=== PATIENT | female | born 1990 | race Caucasian/White ===

== ENCOUNTER 2018-03-23 11:57 | Outpatient (CLI) | payer OTHER ==
[2018-03-23] MEDS: TERBUTALINE 1 MG/ML INJ SC ×2 (13:36→16:19)
[2018-03-23 14:28] LABS: ADD UMIC NO; UR ASCORBIC ACID NEGATIVE (NEGATIVE); UR BILIRUBIN (Dip) NEGATIVE (NEGATIVE); UR BLOOD (Dip) NEGATIVE (NEGATIVE); UR CLARITY CLEAR (CLEAR); UR COLOR YELLOW (YELLOW); UR GLUCOSE (Dip) NEGATIVE (NEGATIVE); UR KETONES (Dip) NEGATIVE (NEGATIVE); UR LEUKOCYTE ESTERASE (Dip) NEGATIVE Leu/ul (NEGATIVE); UR NITRITE (Dip) NEGATIVE (NEGATIVE); UR TOTAL PROTEIN (Dip) NEGATIVE (NEGATIVE); UR UROBILINOGEN (Dip) NEGATIVE (NEGATIVE)
== END 2018-03-23 17:45 | disposition home or self-care (01) ==
LOC: OBT 11:57 → L-D 11:58 → OBT 17:45
DX: O62.9 Abnormality of forces of labor, unspecified (principal); Z3A.36 36 weeks gestation of pregnancy
CPT/HCPCS: 76818; 81003

== ENCOUNTER 2018-03-27 22:18 | Inpatient (IN) | payer OTHER ==
[2018-03-27] MEDS: LACTATED RINGER'S 1,000 ML IV (23:12)
[2018-03-27] MEDS: ACETAMINOPHEN 1000MG/100ML IV 100 ML IVPB (23:17)
[2018-03-28 00:04] LABS: ADD UMIC NO; UR ASCORBIC ACID NEGATIVE (NEGATIVE); UR BILIRUBIN (Dip) NEGATIVE (NEGATIVE); UR BLOOD (Dip) NEGATIVE (NEGATIVE); UR CLARITY CLEAR (CLEAR); UR COLOR STRAW (YELLOW); UR GLUCOSE (Dip) NEGATIVE (NEGATIVE); UR KETONES (Dip) NEGATIVE (NEGATIVE); UR LEUKOCYTE ESTERASE (Dip) NEGATIVE Leu/ul (NEGATIVE); UR NITRITE (Dip) NEGATIVE (NEGATIVE); UR SPECIFIC GRAVITY (Dip) 1.009 (1.003-1.030); UR TOTAL PROTEIN (Dip) NEGATIVE (NEGATIVE); UR UROBILINOGEN (Dip) NEGATIVE (NEGATIVE)
[2018-03-28] MEDS: TERBUTALINE 1 MG/ML INJ SC ×2 (00:13→01:01)
[2018-03-28] MEDS: LACTATED RINGER'S 1,000 ML IV ×3 (00:15→19:20)
[2018-03-28] MEDS: BUTORPHANOL 2 MG INJ IV (14:30)
[2018-03-28 16:04] LABS: ADD MAN DIFF? NO
[2018-03-28 16:06] LABS: BASOPHILS % 0.4 % (0.0-2.0); EOSINOPHILS # 0.1 10^3/ul (0.0-0.5); EOSINOPHILS % 0.9 % (0.0-7.0); HEMATOCRIT 33.1 % (37.0-47.0); HEMOGLOBIN 11.2 g/dl (12.0-16.0); LYMPHOCYTES # 1.5 10^3/ul (0.8-2.9); LYMPHOCYTES % 19.2 % (15.0-51.0); MEAN CORPUSCULAR HEMOGLOBIN 30.7 pg (29.0-33.0); MEAN CORPUSCULAR HGB CONC 33.8 g/dl (32.0-37.0); MEAN CORPUSCULAR VOLUME 90.7 fl (82.0-101.0); MEAN PLATELET VOLUME 10.4 fl (7.4-10.4); MONOCYTE # 0.6 10^3/ul (0.3-0.9); MONOCYTES % 7.4 % (0.0-11.0); NEUTROPHIL # 5.3 10^3/ul (1.6-7.5); NEUTROPHILS % 70.6 % (39.0-77.0); PLATELET COUNT 249 10^3/UL (140-415); RED BLOOD COUNT 3.65 10^6/ul (4.20-5.40); RED CELL DISTRIBUTION WIDTH 14.5 % (11.5-14.5)
[2018-03-28 16:06] LABS: WHITE BLOOD COUNT 7.6 10^3/ul (4.8-10.8)
[2018-03-28 16:26] LABS: INR 0.95; PROTIME 12.8 Sec (11.9-14.9)
[2018-03-28 16:27] LABS: PARTIAL THROMBOPLASTIN TIME 27.2 Sec (23.0-35.0)
[2018-03-28 17:09] LABS: HEPATITIS B SURFACE ANTIGEN NEGATIVE (NEGATIVE)
[2018-03-28] MEDS ORDERED: MISOPROSTOL 200 MCG TAB PR (18:00)
[2018-03-28] MEDS ORDERED: CARBOPROST 250 MCG INJ IM (18:00)
[2018-03-28] MEDS ORDERED: OXYTOCIN 30 UNITS/LR 500 ML IV ×2 (18:00)
[2018-03-28] MEDS ORDERED: METHYLERGONOVINE 0.2 MG INJ IM (18:00)
[2018-03-28 19:04] LABS: RAPID PLASMA REAGIN NONREACTIVE (NR)
[2018-03-28] MEDS ORDERED: FENTAnyl 2MCG/ML-ROPIV 0.2% 100 ML (20:35)
[2018-03-28] MEDS ORDERED: FENTAnyl 50 MCG/ML VIAL (22:26)
[2018-03-28] MEDS ORDERED: LIDOCAINE 1.5%/EPI MPF (SDV) 30 ML VIAL (22:26)
[2018-03-28] MEDS ORDERED: SODIUM BICARBONATE (IV ADD) 50 ML (22:26)
[2018-03-28] MEDS: CEFAZOLIN 2 GM/50 ML (PMX) 50 ML IVPB (22:33)
[2018-03-28] MEDS ORDERED: DEXAMETHASONE 4 MG/ML 1 ML INJ (22:34)
[2018-03-28] MEDS ORDERED: ONDANSETRON 4 MG INJ (22:34)
[2018-03-28] MEDS ORDERED: morphine SULFATE/PF (10 MG/10 ML) INJ (22:55)
[2018-03-28] MEDS ORDERED: DIPHENHYDRAMINE 50 MG INJ IV (23:00)
[2018-03-28] MEDS ORDERED: ONDANSETRON 4 MG INJ IV (23:00)
[2018-03-28] MEDS ORDERED: ZOLPIDEM 5 MG TAB PO (23:00)
[2018-03-28] MEDS ORDERED: HYDROmorphONE 0.5 MG/0.5 ML SYG IV ×2 (23:00)
[2018-03-28] MEDS ORDERED: NALOXONE (0.4 MG/ML) INJ IV (23:00)
[2018-03-28] MEDS: OXYTOCIN 30 UNITS/LR 500 ML IV (23:59)
[2018-03-29] MEDS ORDERED: OXYCODONE/ACETAMINOPHEN (5/325) TAB PO
[2018-03-29] MEDS ORDERED: OXYTOCIN 30 UNITS/LR 500 ML IV
[2018-03-29] MEDS ORDERED: MISOPROSTOL 200 MCG TAB PR
[2018-03-29] MEDS ORDERED: NACL 0.9% 3 ML SYG IV
[2018-03-29] MEDS ORDERED: LANOLIN HPA 1 PKT TOP
[2018-03-29] MEDS ORDERED: METHYLERGONOVINE 0.2 MG INJ IM
[2018-03-29] MEDS ORDERED: CARBOPROST 250 MCG INJ IM
[2018-03-29] MEDS: OXYTOCIN 30 UNITS/LR 500 ML IV (04:56)
[2018-03-29] MEDS: KETOROLAC 30 MG INJ IV ×2 (05:53→18:40)
[2018-03-29] MEDS: OXYCODONE/ACETAMINOPHEN (5/325) TAB PO (21:47)
[2018-03-29] MEDS: IBUPROFEN 800 MG TAB PO (23:00)
[2018-03-30] MEDS: IBUPROFEN 800 MG TAB PO ×5 (05:41→23:43)
[2018-03-30 08:38] LABS: ADD MAN DIFF? NO
[2018-03-30 08:47] LABS: BASOPHILS % 0.4 % (0.0-2.0); EOSINOPHILS # 0.1 10^3/ul (0.0-0.5); EOSINOPHILS % 0.8 % (0.0-7.0); HEMOGLOBIN 10.8 g/dl (12.0-16.0); LYMPHOCYTES # 1.7 10^3/ul (0.8-2.9); LYMPHOCYTES % 21.4 % (15.0-51.0); MEAN CORPUSCULAR HEMOGLOBIN 30.3 pg (29.0-33.0); MEAN CORPUSCULAR HGB CONC 33.8 g/dl (32.0-37.0); MEAN CORPUSCULAR VOLUME 89.6 fl (82.0-101.0); MEAN PLATELET VOLUME 10.6 fl (7.4-10.4); MONOCYTE # 0.5 10^3/ul (0.3-0.9); MONOCYTES % 6.1 % (0.0-11.0); NEUTROPHIL # 5.7 10^3/ul (1.6-7.5); NEUTROPHILS % 70.8 % (39.0-77.0); PLATELET COUNT 232 10^3/UL (140-415); RED BLOOD COUNT 3.57 10^6/ul (4.20-5.40); RED CELL DISTRIBUTION WIDTH 13.8 % (11.5-14.5)
[2018-03-31] MEDS: IBUPROFEN 800 MG TAB PO ×2 (05:38→12:10)
[2018-03-31] MEDS: DIPHTH/TET/ACEL PERTUSS (ADULT) 0.5 ML VIAL IM* (12:14)
== END 2018-03-31 16:01 | disposition home or self-care (01) | DRG 788 ==
LOC: OBT 22:18 → PP1 03-29 02:12 → L-D 22:19
PROC: 10D00Z1 Extraction of Products of Conception, Low, Open Approach (ICD-10-PCS; principal; 2018-03-28)
PROC: 3E033VJ Introduction of Other Hormone into Peripheral Vein, Percutaneous Approach (ICD-10-PCS; 2018-03-28)
DX: O34.211 Maternal care for low transverse scar from previous cesarean delivery (principal); O32.1XX0 Maternal care for breech presentation, not applicable or unspecified; Z3A.37 37 weeks gestation of pregnancy; Z37.0 Single live birth
CPT/HCPCS: 36415; 62319; 76818; 81003; 85025; 85610; 85730; 86592; 86850; 86900; 86901; 87086; 87340; 96360; 96361; 96367; 96372; 99464